=== PATIENT | female | born 1955 | race Caucasian/White ===

== ENCOUNTER 2017-07-13 18:22 | Emergency (ER) | payer OTHER ==
[~2017-07-13] VITALS: Ht 162.6 cm; Wt 93.0 kg
[~2017-07-13 18:22] MED LIST: ASPI81 PO
[2017-07-13 18:27] VITALS: BP 115/53; PULSE 82; RESP 16; TEMP 98.3; O2SAT 97
[2017-07-13] MEDS ORDERED: OMEP10CA PO (18:37)
[2017-07-13] MEDS ORDERED: LISI20TA3 PO (18:37)
--- NOTE | 2017-07-13 19:11 | PD ---
HPI Chief Complaint: Musculoskeletal Complaint Time Seen by Provider: 19:07 Travel History International Travel<30 days: No Contact w/Intl Traveler<30days: No Traveled to known affect area: No History of Present Illness HPI 61-year-old female presents to the emergency department for evaluation of her left calf that has been hurting her for 3 days. States that she is having trouble walking because of the pain, has had increased swelling, and warmth to the calf. She has had multiple procedures on that leg including sclerotherapy, vein stripping, and harvesting. She last had sclerotherapy and vein removal on Saturday-Saturday. She does follow a vein specialist for her 'abnormal' veins. No shortness of breath today, no diaphoresis, abdominal pain, fevers, back pain. Had an episode of her typical chest pain radiating to her jaw while she was cooking this morning and relieved with rest and 2 nitro. She is not on blood thinners. There is strong family history of cardiovascular disease but does not know specifically these problems. She is to follow Dr. Fam however has not seen him in about 3 years. Prior to this episode of chest pain she took a nitroglycerin about 2 months ago where she use nitroglycerin and her pain was resolved. PFSH Past Medical History Cardiovascular Problems: Yes Chest Pain: Yes (WITH NO CARDIA DIAGNOSIS EVER GIVEN) Diminished Hearing: No Hypertension: Yes Menopausal: Yes Past Surgical History Cholecystectomy: Yes Eye Surgery: Yes Social History Alcohol Use: No Tobacco Use: No Substance Use: No Allergies-Medications (Allergen,Severity, Reaction): Coded Allergies: codeine (Unverified Allergy, Severe, 07/13/17) bee venom protein (honey bee) (Unverified Allergy, Mild, 07/13/17) Reported Meds & Prescriptions Reported Meds & Active Scripts Active Bactrim DS (Sulfamethoxazole-Trimethoprim) 800-160 Mg Tab 1 Tab PO BID Keflex (Cephalexin) 500 Mg Capsule 500 Mg PO TID 10 Days Reported Lisinopril-Hctz 20-25 Mg Tab 1 Tab PO DAILY Omeprazole 10 Mg Cap 10 Mg PO DAILY Review of Systems Except as stated in HPI: all other systems reviewed are Neg Physical Exam Narrative GENERAL: Well-developed well-nourished SKIN: Focused skin assessment warm/dry. HEAD: Atraumatic. Normocephalic. EYES: Pupils equal and round. No scleral icterus. No injection or drainage. ENT: No nasal bleeding or discharge. Mucous membranes pink and moist. NECK: Trachea midline. No JVD. CARDIOVASCULAR: Regular rate and rhythm. No murmur appreciated. RESPIRATORY: No accessory muscle use. Clear to auscultation. Breath sounds equal bilaterally. GASTROINTESTINAL: Abdomen soft, non-tender, nondistended. MUSCULOSKELETAL: No obvious deformities. No clubbing. No cyanosis. No edema. Left calf: Multiple varicose veins, Edematous, warm, ecchymosis extending from anterior medial aspect of thigh secondary to recent stripping, TTP to entire calf Right calf: Multiple varicose veins, Negative Homans NEUROLOGICAL: Awake and alert. No obvious cranial nerve deficits. Motor grossly within normal limits. Normal speech. PSYCHIATRIC: Appropriate mood and affect; insight and judgment normal. Data Data Last Documented VS Vital Signs Date Time Temp Pulse Resp B/P (MAP) Pulse Ox O2 Delivery O2 Flow Rate FiO2 07/13/17 18:27 98.3 82 16 115/53 (73) 97 Orders Orders Us Leg Venous Doppler (07/13/17 ) Ed Discharge Order (07/13/17 20:22) MDM Medical Decision Making Medical Screen Exam Complete: Yes Emergency Medical Condition: Yes Differential Diagnosis DVT versus cellulitis versus erysipelas versus surgical complication. Narrative Course 61-year-old female presents to the emergency department with left calf pain for 3 days. States that she had some vein stripping on Saturday and sclerotherapy on on the same leg for tortuous veins. She denies fever, shortness of breath, abdominal pain, back pain. She had an episode of her typical chest pain this morning that was resolved with 2 nitros. Physical exam was significant for left calf pain with erythema, temperature and ecchymosis along the entire calf. Ultrasound did not reveal a DVT. Because of the recent surgery and his exam findings prescribed an antibiotic for treatment of presumed cellulitis. Patient advised follow-up with her primary care physician as soon as possible. Advised follow-up with her pain specialist this week. Diagnosis Primary Impression: Left leg cellulitis Referrals: Lasting Machine Operator Bed Vascular Surgeon Additional Instructions: Return to primary clinic care physician within 2 days. Follow up with weeder as soon as possible. Take all antibiotics as prescribed Scripts Sulfamethoxazole-Trimethoprim (Bactrim DS) 800-160 Mg Tab 1 TAB PO BID for Infection, #20 TAB 0 Refills Prov: Leesa Benton 07/13/17 Cephalexin (Keflex) 500 Mg Capsule 500 MG PO TID for Infection for 10 Days, CAP 0 Refills Prov: Hao Nieves MD 07/13/17 Disposition: 01 DISCHARGE HOME Condition: Stable Leesa Benton Jul 13, 2017 19:11
--- NOTE | 2017-07-13 19:34 | RADRPT ---
EXAM DATE/TIME: 07/13/2017 19:14 [facility] COMPARISON: No previous studies available for comparison. INDICATIONS : Left leg pain. MEDICAL HISTORY : Hypertension. SURGICAL HISTORY : Cholecystectomy. Eye surgery. Cardiac catheterization. Back surgery. ENCOUNTER: Initial ACUITY: 4 - 6 days PAIN SCORE: 9/10 LOCATION: Left leg. TECHNIQUE: Venous ultrasound of the leg was performed from the inguinal ligament to the proximal calf. Real-wilfred e, color Doppler and spectral tracing, compression and augmentation techniques were used. FINDINGS: There is normal compressibility of the deep venous system from the inguinal region to the proximal ca lf. No echogenic clot is seen in the lumen of the common femoral, femoral, popliteal, and posterior tibial veins. There is a normal response of the venous system to proximal and distal augmentation an d respiration. CONCLUSION: Normal examination. Tyler Bhakta MD on July 13, 2017 at 19:32 Board Certified Radiologist. This report was verified electronically.
[2017-07-13] MEDS ORDERED: CEPH-460 PO (20:04)
[2017-07-13] MEDS ORDERED: BACT800T5 PO (20:22)
== END 2017-07-13 20:46 | disposition home or self-care (01) ==
LOC: PHEFT 18:22
DX: L03.116 Cellulitis of left lower limb (principal); R22.42 Localized swelling, mass and lump, left lower limb; R07.9 Chest pain, unspecified; I10 Essential (primary) hypertension; Z98.890 Other specified postprocedural states; Z86.79 Personal history of other diseases of the circulatory system
CPT/HCPCS: 93971; 99284